=== PATIENT | female | born 2000 | race Caucasian/White ===

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

== ENCOUNTER 2023-05-18 00:10 | Emergency (ER) | payer OTHER ==
[~2023-05-18] VITALS: Ht 149.9 cm; Wt 64.0 kg
[2023-05-18 00:35] VITALS: BP 132/77; PULSE 85; RESP 18; TEMP 97.2; O2SAT 99
[2023-05-18] MEDS ORDERED: KETOROLAC 30 MG/ML VIAL IM ONE (02:30)
[2023-05-18] MEDS ORDERED: ACETAMINOPHEN EXTRA STRENGTH 500 MG TAB PO ONE (02:30)
[2023-05-18 03:32] VITALS: BP 132/77; PULSE 85; RESP 18; TEMP 97.2; O2SAT 99
== END 2023-05-18 03:32 | disposition home or self-care (01) ==
LOC: MED 00:10
DX: S11.83XA Puncture wound without foreign body of other specified part of neck, initial encounter (principal); X58.XXXA Exposure to other specified factors, initial encounter; Y93.89 Activity, other specified; Y92.89 Other specified places as the place of occurrence of the external cause; Y99.8 Other external cause status
CPT/HCPCS: 72050; 99283